=== PATIENT | female | born 1995 | race Caucasian/White ===

== ENCOUNTER 2017-02-15 06:13 | Day surgery (SDC) | payer SELFPAY ==
[2017-02-13 12:08] VITALS: BMI 25.7
[2017-02-15] MEDS ORDERED: MIDAZOLAM HCL 2 MG/2 ML SINGLE DOSE VIAL ONE ×2 (07:27)
[2017-02-15] MEDS ORDERED: PROPOFOL 20 ML ONE ×3 (07:27→09:57)
[2017-02-15] MEDS ORDERED: ONDANSETRON 4 MG/2 ML VIAL ONE (07:53)
[2017-02-15] MEDS ORDERED: ceFAZolin SODIUM 1 GM VIAL ONE (07:53)
[2017-02-15] MEDS ORDERED: LIDOCAINE HCL/PF 2% SDV 5ML VIAL ONE (07:53)
[2017-02-15] MEDS ORDERED: DEXAMETHASONE SOD PHOSPHATE 4 MG/1 ML VIAL ONE (07:53)
[2017-02-15] MEDS ORDERED: LIDOCAINE 1%-EPI 1:100,000 30 ML MDV IJ ONE (07:56)
[2017-02-15] MEDS ORDERED: PHENYLEPHRINE HCL 10 MG/1 ML SINGLE DOSE VIAL ONE (09:39)
[2017-02-15] MEDS ORDERED: ONDANSETRON 4 MG/2 ML VIAL IVPUSH PRN (10:12)
[2017-02-15] MEDS ORDERED: PROMETHAZINE HCL 25 MG/1 ML VIAL IVPUSH PRN (10:12)
[2017-02-15] MEDS ORDERED: KETOROLAC TROMETHAMINE 30 MG/1 ML VIAL ONE (10:15)
[2017-02-15] MEDS ORDERED: LACTATED RINGERS SOLUTION 1,000 ML IV SCH (10:15)
[2017-02-15] MEDS ORDERED: oxyCODONE HCL 5 MG TABLET PO PRN (10:44)
[2017-02-15] MEDS ORDERED: oxyCODONE HCL 5 MG TABLET ONE (12:29)
[2017-02-15 12:40] VITALS: TEMP 99.3
[2017-02-15] MEDS ORDERED: PROMETHAZINE HCL 25 MG/1 ML VIAL ONE (13:06)
[2017-02-15 15:18] VITALS: BP 134/71; PULSE 94
--- NOTE | 2017-02-16 14:32 | PATH ---
Surgical Pathology Report Patient Name: NIKI CHAPMAN Med. Rec. #: [id number] /Age/Gender: 1995 (Age: 21) / F Account: [id number] Location: [facility] Taken: 02/15/2017 Received: 02/15/2017 Reported: 02/16/2017 Physicians: Alex Smith Specimen(s) Received A: LEFT BREAST TISSUE B: RIGHT BREAST TISSUE Clinical History Cosmetic Final Diagnosis A. BREAST TISSUE, RIGHT, REDUCTION: BENIGN BREAST TISSUE. SKIN WITH NO PATHOLOGIC FINDINGS. B. BREAST TISSUE, LEFT, REDUCTION: BENIGN BREAST TISSUE. SKIN WITH A PATHOLOGIC FINDINGS. Electronically Signed Sherrell Moon M.D. Gross Description A. Received in formalin labeled "right breast 333 g," is a 19.0 x 13.0 x 2.5 cm aggregate of multiple irregular, unoriented portions of fibroadipose tissue and milligan, unremarkable skin. Sectioning reveals abundant dense, white, focally firm fibrous tissue. No definitive masses are identified. Pilot Control Operator sections are submitted in 4 cassettes. B. Received in formalin labeled "left breast 339 g," is an 18.5 x 16.5 x 3.6 cm aggregate of multiple irregular, unoriented portions of fibroadipose tissue and milligan, unremarkable skin. Sectioning reveals abundant dense, white, focally firm fibrous tissue. No definitive masses are identified. Pilot Control Operator sections are submitted in 4 cassettes. /02/15/2017 saudi02/15/2017
--- NOTE | 2017-02-17 06:28 | OP ---
DATE OF OPERATION: 02/15/2017 PREOPERATIVE DIAGNOSIS: Macromastia. POSTOPERATIVE DIAGNOSIS: Macromastia. PROCEDURE: Bilateral reduction mammoplasty. OPERATIVE INDICATIONS: The patient is a 21-year-old white female who complains of major discomfort in the breast area because of large size and ptosis. The risks and benefits of surgical versus nonsurgical alternatives as well as material complications of reduction mammoplasty with a Moore pattern technique were described on multiple occasions preoperatively as well as in the holding area today where the patient was marked in a standing position preoperatively. The patient understood the scar deformities, and all questions were asked and answered. PROCEDURE IN DETAIL: The patient was taken to the operating room, and after induction of general anesthesia in supine position, both the arms were extended and padded. Venodyne boots were placed. The entire chest wall was painted with ChloraPrep solution over its entire extent and then the markings, which were made in a standing position were outlined on the chest wall. The incisions were then made after prepping and draping in the usual fashion down through the skin to the subcutaneous tissue, through the subcutaneous tissue for inferior glandular pedicle technique. The central pedicle was then formed, and large blocks of tissue were removed in the crescenteric fashion on the medial, lateral, and central portions of the upper breast. Approximately 333 g of tissue were removed from the right breast, 339 g of tissue were removed from the left breast. Both breasts were tacked into position on the pedicles with 2-0 Vicryl sutures in interrupted fashion centralizing the pedicle itself and then the skin flaps were advanced and closed upon themselves over a Rawlins drain. Copious irrigation and then hemostasis was obtained throughout the procedure. The patient tolerated the procedure well. All skin flaps were then advanced and closed using 2-0 Vicryl sutures in the deep tissue, 3-0 Monocryl in the subcutaneous dermal fashion, and 4-0 running V-Lock suture around the nipple areolar complex, which was brought out in its new anatomic position and closed in the usual fashion. The patient tolerated the procedure well. She was awakened, extubated, and transferred to the recovery room in satisfactory condition. JHON RUBIO M.D. [id number]
== END 2017-02-15 15:15 | disposition home or self-care (01) ==
LOC: FASU 06:13 → EDBD 07:30 → FASU 15:15
PROVIDERS: ATTEND Plastic Surgery
PROC: 0HBV0ZZ Excision of Bilateral Breast, Open Approach (ICD-10-PCS; principal; 2017-02-15 07:30)
DX: N62 Hypertrophy of breast (principal)
CPT/HCPCS: 84703; 88305-TC; 94760